=== PATIENT | male | born 1990 | race Two or more races ===

== ENCOUNTER 2017-04-12 16:04 | Emergency (ER) | payer SELFPAY ==
[2017-04-12 16:10] VITALS: BP 143/81
[2017-04-12] MEDS ORDERED: LIDOCAINE 1% / SOD BICARB 8.4% 20 ML VIAL. IJ ONE (16:15)
[2017-04-12] MEDS ORDERED: SULF1TAB24 PO (16:25)
[2017-04-12] MEDS ORDERED: NAPR500T PO (16:25)
--- NOTE | 2017-04-12 16:25 | PHYS DOC ---
Past Medical History Past Medical History: No Pertinent History Past Surgical History: No Surgical History Alcohol Use: Occasionally Drug Use: None Adult General Chief Complaint Chief Complaint: INSECT BITE HPI HPI Patient is a 26 year old [facility] emergency department with complaints of an insect bite to the left lower extremity. He states his been present for 4 days. He's had gradual increase in redness and swelling. He's had no fever, no malaise or myalgias. Review of Systems Review of Systems Constitutional: Denies fever or chills [] Eyes: Denies change in visual acuity, redness, or eye pain [] HENT: Denies nasal congestion or sore throat [] Respiratory: Denies cough or shortness of breath [] Cardiovascular: No additional information not addressed in HPI [] GI: Denies abdominal pain, nausea, vomiting, bloody stools or diarrhea [] : Denies dysuria or hematuria [] Musculoskeletal: Denies back pain or joint pain [] Integument: Insect bite Neurologic: Denies headache, focal weakness or sensory changes [] Endocrine: Denies polyuria or polydipsia [] Current Medications Current Medications Current Medications Medications (Trade) Dose Ordered Sig/Yue Start Time Stop Time Status Last Admin Dose Admin Lidocaine/Sodium Bicarbonate (Buffered Lidocaine 1%) 20 ml 1X ONCE 04/12/17 16:15 04/12/17 16:16 DC 04/12/17 16:21 20 ML Allergies Allergies Allergies Coded Allergies Type Severity Reaction Last Updated Verified No Known Drug Allergies 09/02/15 No Physical Exam Physical Exam Constitutional: Well developed, well nourished, no acute distress, non-toxic appearance. [] Cardiovascular:Heart rate regular rhythm, no murmur [] Lungs & Thorax: Bilateral breath sounds clear to auscultation [] Skin: Warm, dry, left lower extremity, medial aspect,3 cm area of erythema and induration with central 1 cm area of fluctuance. Mildly tender to palpate. [] Extremities: no cyanosis, no clubbing, ROM intact, no edema. [] Neurologic: Alert and oriented X 3, normal motor function, normal sensory function, no focal deficits noted. [] Psychologic: Affect normal, judgement normal, mood normal. [] Current Patient Data Vital Signs Vital Signs Date Time Temp Pulse Resp B/P (MAP) Pulse Ox O2 Delivery O2 Flow Rate FiO2 04/12/17 16:10 98.4 90 18 97 Room Air 98.4 EKG EKG [] Radiology/Procedures Radiology/Procedures [] Course & Med Decision Making Course & Med Decision Making Procedure: There are concern cleansed with Betadine, normal saline. Anesthetized with 1% lidocaine, 2 Powers. #11 blade utilize for 1 cm incision, moderate amount of pustulant discharge. Copiously irrigated. Dressing placed. Patient tolerated procedure well. Pertinent Labs and Imaging studies reviewed. (See chart for details) [] Dragon Disclaimer Dragon Disclaimer This electronic medical record was generated, in whole or in part, using a voice recognition dictation system. Departure Departure Impression: Primary Impression: Abscess Disposition: 01 HOME, SELF-CARE Condition: STABLE Referrals: NO PCP (PCP) Patient Instructions: Abscess, Abscess, Care After Scripts Sulfamethoxazole/Trimethoprim (BACTRIM DS TABLET) 1 Each Tablet 1 TAB PO BID, #20 TAB Prov: JUDITH CLIFFORD [employer] 04/12/17 Naproxen (NAPROSYN) 500 Mg Tablet 1 TAB PO BID Y for PAIN, #20 TAB 1 Refill Prov: JUDITH CLIFFORD APRN 04/12/17 JUDITH CLIFFORD [employer] Apr 12, 2017 16:25
== END 2017-04-12 16:30 | disposition home or self-care (01) ==
LOC: ER 16:04
DX: L02.416 Cutaneous abscess of left lower limb (principal)
CPT/HCPCS: 10060; 99283-25